=== PATIENT | female | born 1950 | race Caucasian/White ===

== ENCOUNTER 2016-12-09 15:15 | Outpatient (CLI) | payer MEDICARE, BC ==
[2016-12-09 15:54] LABS: ALT (SGPT) 12 U/L (0-55); AST (SGOT) 22 U/L (5-34); Albumin 4.5 g/dL (3.4-4.8); Alkaline Phosphatase 98 U/L (40-150); Anion Gap 19 mmol/L (10-20); BUN (Urea Nitrogen) 23 mg/dL (9.8-20.1); Bilirubin, Total 0.3 mg/dL (0.2-1.2); Calc. Creatinine Clearance 0 mL/min (70-130); Calcium 9.8 mg/dL (7.8-10.44); Carbon Dioxide 24 mmol/L (23-31); Chloride 90 mmol/L (98-107); Estimated GFR-MDRD 43; Globulin 3.1 g/dL (2.4-3.5); Glucose 85 mg/dL (80-115); Potassium 3.9 mmol/L (3.5-5.1); Protein, Total 7.6 g/dL (5.8-8.1); Sodium 129 mmol/L (136-145)
[2016-12-09 15:56] LABS: Band 1 % (5-11); Eosinophils 5 % (0-10); Lymphocytes 10 % (21-51); MDiff Complete? YES; Mean Corpuscular HGB CONC 32.8 g/dL (32.0-36.0); Mean Corpuscular Hemoglobin 31.2 pg (27.0-31.0); Mean Corpuscular Volume 95.3 fl (81.0-99.0); Mean Platelet Volume 6.2 fL (7.4-10.4); Monocytes 9 % (0-10); Neutrophil 73 % (42-75); Platelet Count 237 thou/uL (130-400); RBC Distribution Width 11.8 % (11.5-14.5); Reactive Lymphocytes 2 % (0-10); Red Blood Cell (RBC) Count 4.16 mill/uL (4.20-5.40); White Blood Cell (WBC) Count 5.3 thou/uL (4.8-10.8)
--- NOTE | 2016-12-09 15:56 | RAD ---
ABDOMEN 2 VIEWS: HISTORY: Abdomen pain. Axillary mass. FINDINGS: Gas and stool are apparent throughout the colon and rectum. There are no differential air fluid lev els or evidence of free intraperitoneal gas. Right diaphragm margin is predominantly obscured on th e upright view. Right hip prosthesis is partially visualized. There are degenerative changes of th e left hip and lumbar spine. IMPRESSION: 1. Nonspecific bowel gas pattern. 2. Opacity at the right lung base, predominantly obscuring the right hemidiaphragm. Please conside r upright PA and lateral views of the chest for additional evaluation. POS: PAWAN
--- NOTE | 2016-12-09 16:27 | ULT ---
LEFT AXILLARY ULTRASOUND 12/09/16 COMPARISON: None. HISTORY: "Knot" in the mid section of the left axilla for a couple of weeks. TECHNIQUE: Multiplanar davenport scale sonographic imaging of the left axillary region is provided. FINDINGS: Imaging of the left axillary region is performed with a standoff pad. No mass lesion, enlarged lymph node, or fluid collection is seen. IMPRESSION: Unremarkable focused ultrasound of the left axillary region. If a mass in this region persists, CT e xamination is advised as ultrasound assessment is of low sensitivity with respect to evaluation for soft tissue mass lesion. POS: PAWAN
== END 2016-12-09 15:16 ==
LOC: MADLAB 15:15
PROVIDERS: ATTEND Internal Medicine Geriatric Medicine
DX: R22.32 Localized swelling, mass and lump, left upper limb (principal)
CPT/HCPCS: 36415; 74020; 76999; 80053; 85025

== ENCOUNTER 2017-01-13 11:09 | Outpatient (CLI) | payer MEDICARE, BC ==
[2017-01-13 12:14] LABS: Anion Gap 13 mmol/L (10-20); BUN (Urea Nitrogen) 15 mg/dL (9.8-20.1); Calc. Creatinine Clearance 0 mL/min (70-130); Calcium 9.7 mg/dL (7.8-10.44); Carbon Dioxide 31 mmol/L (23-31); Chloride 85 mmol/L (98-107); Estimated GFR-MDRD 64; Glucose 96 mg/dL (80-115); Potassium 4.3 mmol/L (3.5-5.1); Sodium 125 mmol/L (136-145)
== END 2017-01-13 11:10 | disposition home or self-care (01) ==
LOC: MADLAB 11:09
PROVIDERS: ATTEND Internal Medicine Geriatric Medicine
DX: F32.5 Major depressive disorder, single episode, in full remission (principal)
CPT/HCPCS: 36415; 80048

== ENCOUNTER 2018-01-25 11:11 | Outpatient (CLI) | payer MEDICARE, BC ==
[2018-01-25 11:51] LABS: #Basophils 0.1 thou/uL (0.0-0.2); #Eosinphils 0.1 thou/uL (0.0-0.7); #Lymphocytes 0.5 thou/uL (1.20-3.40); #Monocytes 0.4 thou/uL (0.11-0.59); #Neutrophils 3.8 thou/uL (1.40-6.50); %Basophils 2.7 % (0.0-1.0); %Eosinophils 2.5 % (0.0-10.0); %Lymphocytes 9.8 % (21.0-51.0); %Monocytes 7.4 % (0.0-10.0); %Neutrophils 77.6 % (42.0-75.0); Hemoglobin 13.5 g/dL (12.0-16.0); Mean Corpuscular HGB CONC 32.4 g/dL (32.0-36.0); Mean Corpuscular Hemoglobin 30.4 pg (27.0-31.0); Mean Platelet Volume 6.3 fL (7.4-10.4); Platelet Count 219 thou/uL (130-400); Red Blood Cell (RBC) Count 4.43 mill/uL (4.20-5.40); White Blood Cell (WBC) Count 4.9 thou/uL (4.8-10.8)
[2018-01-25 12:59] LABS: ALT (SGPT) 9 U/L (8-55); AST (SGOT) 17 U/L (5-34); Albumin 4.5 g/dL (3.4-4.8); Alkaline Phosphatase 100 U/L (40-150); Anion Gap 16 mmol/L (10-20); BUN (Urea Nitrogen) 16 mg/dL (9.8-20.1); Bilirubin, Total 0.4 mg/dL (0.2-1.2); Calc. Creatinine Clearance 0 mL/min (70-130); Calcium 10.6 mg/dL (7.8-10.44); Carbon Dioxide 26 mmol/L (23-31); Cardiac Risk 2.9 (Less than 4.5); Cholesterol 251 mg/dl (< 200 Desired); Estimated GFR-MDRD 53; Glucose 102 mg/dL (80-115); HDL Cholesterol 86 mg/dL (>60 Neg Risk); LDL Cholesterol, Calculated 149 mg/dL; Potassium 4.7 mmol/L (3.5-5.1); Protein, Total 7.5 g/dL (6.0-8.3); Sodium 135 mmol/L (136-145); Triglycerides 79 mg/dL (Less than 150)
[2018-01-25 13:05] LABS: Chloride 98 mmol/L (98-107)
== END 2018-01-25 11:12 | disposition home or self-care (01) ==
LOC: MADLAB 11:11
PROVIDERS: ATTEND Internal Medicine Geriatric Medicine
DX: I10 Essential (primary) hypertension (principal)
CPT/HCPCS: 36415; 80053; 80061; 84443; 85025

== ENCOUNTER 2019-06-06 14:53 | Emergency (ER) | payer MEDICARE, BC ==
[2019-06-06] MEDS ORDERED: Metoprolol Tartrate 5 MG/5 ML VIAL ONE ×2 (15:38→16:39)
[2019-06-06] MEDS ORDERED: Sodium Chloride 0.9% 500 ML ONE (15:38)
[2019-06-06] MEDS ORDERED: Hydrochlorothiazide 25 MG TAB ONE (15:38)
[2019-06-06 15:56] LABS: #Basophils 0.1 thou/uL (0.0-0.2); #Eosinphils 0.2 thou/uL (0.0-0.7); #Lymphocytes 0.4 thou/uL (1.20-3.40); #Monocytes 0.5 thou/uL (0.11-0.59); #Neutrophils 4.9 thou/uL (1.40-6.50); %Basophils 1.7 % (0.0-1.0); %Eosinophils 3.3 % (0.0-10.0); %Lymphocytes 6.6 % (21.0-51.0); %Monocytes 7.9 % (0.0-10.0); %Neutrophils 80.5 % (42.0-75.0); Hemoglobin 13.7 g/dL (12.0-16.0); Mean Corpuscular HGB CONC 32.4 g/dL (32.0-36.0); Mean Corpuscular Hemoglobin 29.9 pg (27.0-31.0); Mean Corpuscular Volume 92.3 fL (78.0-98.0); Mean Platelet Volume 6.1 fL (7.4-10.4); Platelet Count 214 thou/uL (130-400); Red Blood Cell (RBC) Count 4.56 mill/uL (4.20-5.40); White Blood Cell (WBC) Count 6.1 thou/uL (4.8-10.8)
[2019-06-06 16:32] LABS: ALT (SGPT) 20 U/L (8-55); AST (SGOT) 26 U/L (5-34); Albumin 4.4 g/dL (3.4-4.8); Alkaline Phosphatase 89 U/L (40-150); Anion Gap 17 mmol/L (10-20); BUN (Urea Nitrogen) 12 mg/dL (9.8-20.1); Bilirubin, Total 0.3 mg/dL (0.2-1.2); Calc. Creatinine Clearance 0 mL/min (70-130); Calcium 9.8 mg/dL (7.8-10.44); Carbon Dioxide 24 mmol/L (23-31); Chloride 98 mmol/L (98-107); Estimated GFR-MDRD 62; Globulin 2.7 g/dL (2.4-3.5); Glucose 96 mg/dL (80-115); Protein, Total 7.1 g/dL (6.0-8.3); Sodium 135 mmol/L (136-145)
== END 2019-06-06 17:30 | disposition home or self-care (01) ==
LOC: MADERS 14:53
DX: I10 Essential (primary) hypertension (principal); J44.9 Chronic obstructive pulmonary disease, unspecified; Z87.891 Personal history of nicotine dependence; Z79.82 Long term (current) use of aspirin; Z85.118 Personal history of other malignant neoplasm of bronchus and lung; Z79.51 Long term (current) use of inhaled steroids; Z79.899 Other long term (current) drug therapy
CPT/HCPCS: 80053; 84484; 85025; 93005; 94760; 96361; 96374; 96376; J7050

== ENCOUNTER 2019-06-09 05:51 | Emergency (ER) | payer MEDICARE, BC ==
[2019-06-09] MEDS ORDERED: Acetaminophen 650 MG Suppository ONE (06:34)
[2019-06-09] MEDS ORDERED: Acetaminophen 325 MG Suppository ONE (06:34)
[2019-06-09] MEDS ORDERED: Sodium Chloride 0.9% 1,000 ML ONE (06:34)
[2019-06-09 06:44] LABS: #Basophils 0.2 thou/uL (0.0-0.2); #Lymphocytes 0.2 thou/uL (1.20-3.40); #Monocytes 0.5 thou/uL (0.11-0.59); #Neutrophils 10.9 thou/uL (1.40-6.50); %Basophils 1.7 % (0.0-1.0); %Lymphocytes 1.8 % (21.0-51.0); %Monocytes 3.9 % (0.0-10.0); %Neutrophils 92.5 % (42.0-75.0); Hemoglobin 14.9 g/dL (12.0-16.0); Mean Corpuscular HGB CONC 33.3 g/dL (32.0-36.0); Mean Corpuscular Volume 90.2 fL (78.0-98.0); Mean Platelet Volume 6.3 fL (7.4-10.4); Platelet Count 252 thou/uL (130-400); RBC Distribution Width 12.8 % (11.5-14.5); Red Blood Cell (RBC) Count 4.98 mill/uL (4.20-5.40); White Blood Cell (WBC) Count 11.7 thou/uL (4.8-10.8)
[2019-06-09 06:59] LABS: ALT (SGPT) 21 U/L (8-55); AST (SGOT) 30 U/L (5-34); Acetaminophen Less than 6.0 mcg/mL (10.0-30.0); Albumin 4.8 g/dL (3.4-4.8); Alcohol Less than 10 mg/dL (Less than 10); Alkaline Phosphatase 97 U/L (40-110); Anion Gap 22 mmol/L (10-20); BUN (Urea Nitrogen) 15 mg/dL (9.8-20.1); Calc. Creatinine Clearance 0 mL/min (70-130); Calcium 10.6 mg/dL (7.8-10.44); Carbon Dioxide 25 mmol/L (23-31); Chloride 85 mmol/L (98-107); Estimated GFR-MDRD 53; Glucose 133 mg/dL (80-115); Salicylate Less than 8.0 mg/dL (15.0-30.0); Sodium 128 mmol/L (136-145)
[2019-06-09 07:11] LABS: Protein, Total 8.8 g/dL (5.8-8.1)
[2019-06-09 07:13] LABS: Bilirubin, Total 0.5 mg/dL (0.2-1.2)
[2019-06-09 07:24] LABS: Bilirubin Negative (Negative); Blood, Urine Large (Negative); Clarity Clear (Clear); Glucose, Urine (Dipstick) Negative (Negative); Leukocyte Negative (Negative); Nitrite Negative (Negative); Protein, Urine (Dipstick) > or equal to 300 mg/dL (Neg-Trace); Urobilinogen 0.2 mg/dL (Less than 2)
[2019-06-09 07:26] LABS: Bacteria/HPF Rare-Few HPF (None Seen); RBC/HPF Greater than 50 HPF (0-3); Squamous Epithelial 0-3 HPF (0-3); WBC/HPF 0-3 HPF (0-3)
[2019-06-09 07:27] LABS: Amphetamine Not Detected (NotDetected); Benzodiazepine Screen Not Detected (NotDetected); Cocaine Metabolite Screen Not Detected (NotDetected); Methamphetamine Not Detected (NotDetected); Opiate Screen Not Detected (NotDetected); Phencyclidine (PCP) Not Detected (NotDetected); THC/Cannabinoid Screen Detected (NotDetected)
[2019-06-09 07:28] LABS: Barbiturates Screen Not Detected (NotDetected); Medtox Control Line Valid? VALID (VALID); Methadone Not Detected (NotDetected); Oxycodone Screen Not Detected (NotDetected); Tricyclic Screen Not Detected (NotDetected)
--- NOTE | 2019-06-09 07:46 | RAD ---
EXAM: CHEST ONE VIEW HISTORY: Pain left breast for 2 weeks. COMPARISON: 12/12/2016 FINDINGS: There is what appears to be an epicardial fat pad at the right lung base. Cardiac silhouette is other hein within normal limits. Pulmonary vasculature is within normal limits. The right suprahilar mass is again noted. There is asymmetric pleural density at the left lung apex which has increased from pr ior study. No pleural effusion or consolidation is seen. The osseous structures are intact. IMPRESSION: 1. Interval increase in pleural-based density at the left lung apex which is asymmetric to the right. CT thorax is recommended. 2. Stable right suprahilar mass.
[2019-06-09] MEDS ORDERED: Sodium Chloride 0.9% 250 ML 250 ML ONE (08:00)
[2019-06-09] MEDS ORDERED: Vancomycin HCl 500 MG VIAL ONE (08:00)
[2019-06-09 10:11] LABS: CSF, Glucose 80 mg/dl (40-70); CSF, Protein 53 mg/dL (15-40); Color Of CSF Supernatant COLORLESS (Colorless); Tube # 2; Unspun CSF Color COLORLESS (Colorless)
[2019-06-09 10:15] LABS: CSF Source CSF; Clarity Clear (Clear); Clarity Hazy (Clear); Tube # 1; Tube # 4
== END 2019-06-09 08:34 | disposition short-term general hospital (02) ==
LOC: MADERS 05:51
DX: R41.82 Altered mental status, unspecified (principal); R50.9 Fever, unspecified; E87.1 Hypo-osmolality and hyponatremia; J44.9 Chronic obstructive pulmonary disease, unspecified; I10 Essential (primary) hypertension; Z87.891 Personal history of nicotine dependence; Z79.82 Long term (current) use of aspirin; Z79.899 Other long term (current) drug therapy
CPT/HCPCS: 36416; 51702; 62270; 71045; 80053; 80306; 80307; 81003; 81015; 82550; 82945; 83605; 84157; 84484; 85025; 87070; 87086; 87205; 89051; 93005; 96361; 96365; J3370; J7050

== ENCOUNTER 2020-10-21 13:44 | Emergency (ER) | payer MEDICARE, BC ==
--- NOTE | 2020-10-21 14:46 | RAD ---
XR Chest Pa Lat STANDARD HISTORY: Shortness of breath COMPARISON: 06/10/2019 FINDINGS: The heart size normal. There is redemonstration of opacity in the right hilar region with n ew atelectatic change in the medial aspect of the right upper lobe. The left lung is clear. Further evaluation bronchoscopy would be helpful.
[2020-10-21 14:59] LABS: #Lymphocytes 0.2 thou/uL (1.20-3.40); #Monocytes 0.2 thou/uL (0.11-0.59); #Neutrophils 8.2 thou/uL (1.40-6.50); %Basophils 0.6 % (0.0-1.0); %Eosinophils 0.1 % (0.0-10.0); %Monocytes 2.3 % (0.0-10.0); %Neutrophils 95.1 % (42.0-75.0); Hemoglobin 10.3 g/dL (12.0-16.0); Mean Corpuscular HGB CONC 33.9 g/dL (32.0-36.0); Mean Corpuscular Hemoglobin 30.1 pg (27.0-31.0); Mean Corpuscular Volume 88.9 fL (78.0-98.0); Mean Platelet Volume 5.7 fL (7.4-10.4); Platelet Count 244 thou/uL (130-400); RBC Distribution Width 12.2 % (11.5-14.5); Red Blood Cell (RBC) Count 3.42 mill/uL (4.20-5.40); White Blood Cell (WBC) Count 8.7 thou/uL (4.8-10.8)
[2020-10-21 15:15] LABS: ALT (SGPT) 18 U/L (8-55); AST (SGOT) 20 U/L (5-34); Albumin 3.7 g/dL (3.4-4.8); Alkaline Phosphatase 68 U/L (40-110); Anion Gap 13 mmol/L (10-20); BUN (Urea Nitrogen) 15 mg/dL (9.8-20.1); Bilirubin, Total 0.2 mg/dL (0.2-1.2); Calc. Creatinine Clearance 0 mL/min (70-130); Carbon Dioxide 27 mmol/L (23-31); Chloride 97 mmol/L (98-107); Glucose 140 mg/dL (80-115); Potassium 4.3 mmol/L (3.5-5.1); Protein, Total 6.7 g/dL (5.8-8.1); Sodium 133 mmol/L (136-145)
[2020-10-21 15:27] LABS: Bicarbonate (HCO3v) 27.9 mmol/L (22.0-28.0); CO2 Tension (PvCO2) 43.1 mmHg (40.0-50.0); Calcium, Ionized 1.15 mmol/L (1.15-1.33); Chloride 95 mmol/L (98-107); Hemoglobin - Calc 11.1 g/dL (12.0-16.0); Potassium 4.3 mmol/L (3.5-5.1); Sodium 132 mmol/L (138-145); T. Carbon Dioxide 29.2 mmol/L (22.0-28.0); vO2 Saturation-calc 85.5 % (60.0-85.0)
== END 2020-10-21 17:32 | disposition home or self-care (01) ==
LOC: MADERS 13:44
DX: J44.1 Chronic obstructive pulmonary disease with (acute) exacerbation (principal); R00.0 Tachycardia, unspecified; J44.9 Chronic obstructive pulmonary disease, unspecified; I10 Essential (primary) hypertension; Z87.891 Personal history of nicotine dependence; Z85.118 Personal history of other malignant neoplasm of bronchus and lung; Z79.899 Other long term (current) drug therapy
CPT/HCPCS: 36415; 71046; 80053; 82330; 82803; 83880; 84484; 85025; 93005; J7620